=== PATIENT | male | born 1935 | race Caucasian/White ===

== ENCOUNTER 2019-05-21 15:22 | Outpatient (CLI) | payer OTHER, SELFPAY ==
[2019-05-21 16:35] LABS: Basophils # 0.1 10^3/uL (0.0-0.1); Basophils % 0.6 %; Eosinophils # 0.4 10^3/uL (0.0-0.8); Eosinophils % 3.5 %; Hematocrit 43.9 % (42.0-52.0); Hemoglobin 14.4 g/dL (11.7-16.6); Lymphocytes % 29.9 %; Mean Corpuscular HGB Conc 32.8 g/dL (30.0-36.0); Mean Corpuscular Hemoglobin 29.3 pg (28.0-34.0); Mean Corpuscular Volume 89.4 fL (80-94); Mean Platelet Volume 10.2 fL (7.4-10.4); Monocytes # 0.9 10^3/uL (0.2-0.9); Monocytes % 9.2 %; Neutrophils # 5.6 10^3/uL (1.8-7.7); Nucleated Red Blood Cells % 0 %; Platelet Count 261 10^3/cmm (130-400); Red Blood Count 4.91 10^6/uL (4.1-5.3); Red Cell Distribution Width 13.5 % (12.1-15.1); White Blood Count 10.1 10^3/uL (4.0-10.0)
[2019-05-21 16:36] LABS: Alanine Aminotransferase 12 U/L (0-41); Alkaline Phosphatase 69 IU/L (40-130); Anion Gap 15.1 (5-19); Aspartate Amino Transferase 20 U/L (0-40); Blood Urea Nitrogen 15 mg/dL (8-23); Calcium 9.7 mg/dL (8.5-10.5); Carbon Dioxide 26 mmol/L (22-29); Chloride 98 mmol/L (98-107); Globulin 3.7 g/dL (1.3-4.6); Glucose 106 mg/dL (74-106); Potassium 4.1 mmol/L (3.5-5.1); Sodium 135 mmol/L (136-145); Total Bilirubin 0.3 mg/dL (0.15-1.2); Total Protein 7.7 g/dL (6.6-8.7)
== END 2019-05-21 15:23 | disposition home or self-care (01) ==
LOC: LAB 15:26
PROVIDERS: PCP General Practice; Visit Provider Specialist
DX: R22.1 Localized swelling, mass and lump, neck (principal)
CPT/HCPCS: 36415; 80053; 85025; 85610

== ENCOUNTER 2019-06-04 11:11 | Outpatient (CLI) | payer OTHER, SELFPAY ==
--- NOTE | 2019-06-04 11:19 | CT_ITS ---
WS: [id number] CT NECK TECHNIQUE: Contrast-enhanced CT of the neck with coronal and sagittal reformatted images. CLINICAL INFORMATION: NECK MASS COMPARISON: CT 4 30,019 and PET/CT 05/30/19 DLP: 3113.[address] scans at [facility] use at least one of these dose optimization techniques: automat ed exposure control; mA and/or kV adjustment per patient size (includes targeted exams where dose is matched to clinical indication); or iterative reconstruction. FINDINGS: Postoperative changes prior right parotidectomy. There is a new central necrotic level 2B cervical ly mph node/mass measuring 1.8 x 2.9 x 2.9 cm consistent with recurrent squamous cell carcinoma. This is posterior to the right sternocleidomastoid. Associated heterogeneous peripheral enhancement. Additio nal 1.1 cm FDG avid lymph node posterior medial to the large mass. Additional FDG avid posterior tria ngle lymph nodes measuring 1.1 CM. Partially visualized intracranial contents unremarkable. Paranasal sinuses and mastoid air cells well aerated. Mild mucosal thickening ethmoid air cells. No evidence of supraglottic or glottic mass. Chuck rnotomy. Lung apices are normal. CT/CT neck w con* [id number] IMPRESSION: 1. Prior postoperative changes right parotidectomy. 2. 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 3. FDG avid right level 2 cervical lymph node measuring 1.1 cm and FDG avid po sterior triangle lymph node measuring 1.1 cm with central necrosis. 4. 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
[2019-06-04] MEDS: iohexol 300 mg/mL 100 mL Btl IV (11:38)
== END 2019-06-04 11:12 | disposition home or self-care (01) ==
PROVIDERS: PCP General Practice; Visit Provider Specialist
DX: R22.1 Localized swelling, mass and lump, neck (principal); C80.1 Malignant (primary) neoplasm, unspecified
CPT/HCPCS: 70491; Q9967